=== PATIENT | female | born 1950 | race Caucasian/White ===

== ENCOUNTER 2016-06-26 15:45 | Emergency (ER) | payer BC ==
[~2016-06-26] VITALS: Ht 165.1 cm; Wt 62.7 kg
[2016-06-26 15:55] VITALS: BP 126/74; PULSE 109; RESP 17; TEMP 98.4; O2SAT 95
[2016-06-26] MEDS ORDERED: DIATRIZOATE MEGLUM/DIATRIZOATE SOD 120 ML BTL (for RAD DIAG) PEG ONE (20:00)
[2016-06-26] MEDS ORDERED: LEVO100T5 PO (20:03)
[2016-06-26] MEDS ORDERED: PREV30TA3 PO (20:03)
[2016-06-26] MEDS ORDERED: ONDA1TAB17 PO (20:03)
[2016-06-26] MEDS ORDERED: SUCR1TAB PO (20:03)
[2016-06-26] MEDS ORDERED: POTA-245 PO (20:03)
[2016-06-26] MEDS ORDERED: METF1000 PO (20:03)
[2016-06-26] MEDS ORDERED: SIMV20TA PO (20:03)
[2016-06-26] MEDS ORDERED: NUTR-215 PEG (20:03)
[2016-06-26] MEDS ORDERED: PROC10TA PO (20:03)
[2016-06-26 20:04] VITALS: BP 114/73; PULSE 105; RESP 18; O2SAT 96
--- NOTE | 2016-06-26 20:51 | PD ---
HPI Chief Complaint: Abdominal Pain Time Seen by Provider: 20:52 Travel History International Travel<30 days: No Contact w/Intl Traveler<30days: No Traveled to known affect area: No History of Present Illness HPI 65-year-old female presents to the emergency department for complaint of lower abdominal pain and abdominal distention. Patient has prior history of breast cancer status post lumpectomy and left mastectomy with current history of gastric cancer with metastatic disease to the esophagus spleen and intestine undergoing chemotherapy last chemotherapy 06/07/16 and completing 22 rounds of radiation therapy around the third week of April 2016. Patient underwent PET scan 1 week ago Sunday and was seen by her oncologist in [place] on Sunday and was cleared to come to [place] to visit with family. Patient did comment to her oncologist on Sunday that she was developing some lower abdominal pain which was felt to be related to intestinal gas and possible intestinal spasm patient states since Sunday symptoms have been worsening and she is noted more bloating. Patient spouse are also concerned about PEG tube placement as it seems to have become slightly dislodged and is protruding more than normal by about an inch. According to patient and spouse at bedside patient is tolerating tube feedings well and there has been no difficulty with administering fluids and no difficulty with flushing PEG tube. Patient has continued to have soft stools and flatus. Patient has some minor nausea but has not been taking any medication for nausea and denies any vomiting. Patient denies any fever or chills. Patient's had no chest pain pleuritic pain or shortness of breath. Patient's had no productive cough. Patient denies any lower extremity pain or swelling. Patient's had no dysuria frequency urgency or flank pain but has noted some slight decreased urine output. Patient has been taking oral hydration with bottles of water and receiving water via her PEG tube. Patient is here due to Concern of abdominal distention and lower abdominal pain. Patient has diabetes and reports her blood sugars have been well-controlled. Patient also has history of hypothyroidism and dyslipidemia. No report of CAD but does note that on one of her imaging studies coronary calcifications were noted and did undergo stress testing without being informed of any active cardiac disease. PFSH Past Medical History Narrative Medical Malignant cancer of the stomach breast cancer with lumpectomy and mastectomy chemotherapy radiation therapy dyslipidemia diabetes hypothyroidism GERD peg tube left chest power port prior tobacco use Cancer: Yes (LEFT BREAST, GI TRACT) High Cholesterol: Yes Chemotherapy: Yes (LAST CHEMO 06/07/2016) Diabetes: Yes Patient Takes Glucophage: Yes Diminished Hearing: No Implanted Vascular Access Dvce: Yes (LEFT CHEST POWER PORT) Medical other: Yes (BILATERAL LUMPECTOMY) Thyroid Disease: Yes Tetanus Vaccination: > 5 Years Influenza Vaccination: No ?: Not Past Surgical History Abdominal Surgery: Yes (J-PEG TO LEFT LOWER ABDOMEN) Body Medical Devices: LEFT CHEST INFUSAPORT, LEFT ABDOMEN J-PEG Other Surgery: Yes (LEFT CHEST INFUSAPORT) Social History Alcohol Use: No Tobacco Use: No (QUIT 2006) Substance Use: No Allergies-Medications (Allergen,Severity, Reaction): Coded Allergies: Carboplatin (Verified Allergy, Severe, RASH, 06/26/16) Emend (Verified Allergy, Severe, Anaphylaxis, 06/26/16) Epirubicin (Verified Allergy, Severe, Anaphylaxis, 06/26/16) Reported Meds & Prescriptions Reported Meds & Active Scripts Active Lortab Liq (Hydrocodone-Acetaminophen Liq) 10-300 Mg/15 Ml Elix 7.5-10 Ml PO Q6H PRN Reported Metformin (Metformin HCl) 1,000 Mg Tab 1,000 Mg PO DAILY With a meal Simvastatin 20 Mg Tab 20 Mg PO DAILY Levothyroxine (Levothyroxine Sodium) 100 Mcg Tab 100 Mcg PO DAILY Sucralfate 1 Gm Tab 1 Gm PO QID on empty stomach Glucerna 1.5 Julien (Nutritional Supplements) 1 Liq Liq PEG BID Prochlorperazine Maleate 10 Mg Tab 10 Mg PO Q6H PRN Klor-Con M20 (Potassium Chloride Microencaps) 20 Meq Tab 20 Meq PO DAILY Ondansetron (Ondansetron HCl) 8 Mg Tab 8 Mg PO TID PRN Prevacid Solutab ODT (Lansoprazole) 30 Mg Tab 30 Mg PO DAILY Mix with 4 ml water before giving via tube. Review of Systems Except as stated in HPI: all other systems reviewed are Neg General / Constitutional: No: Fever, Chills HENT: No: Congestion Cardiovascular: No: Chest Pain or Discomfort, Palpitations, Diaphoresis, Syncope, Dyspnea on exertion, Edema Respiratory: No: Cough, Shortness of Breath, Pleuritic Pain Gastrointestinal: Positive: Nausea, Abdominal Pain, Constipation (mild), No: Vomiting, Diarrhea, Loss of Appetite Genitourinary: Positive: Decreased Urinary Output, No: Urgency, Frequency, Dysuria Musculoskeletal: No: Myalgias, Arthralgias, Cramping, Edema, Pain Skin: No Rash Neurologic: No: Weakness Psychiatric: Positive: Anxiety Endocrine: No: Heat Intolerance Hematologic/Lymphatic: No: Easy Bruising Physical Exam Narrative GENERAL: Well-developed well-nourished female in no acute distress no respiratory distress SKIN: Warm and dry. HEAD: Normocephalic. EYES: No scleral icterus. No injection or drainage. NECK: Supple, trachea midline. No JVD or lymphadenopathy. CARDIOVASCULAR: Regular rate and rhythm without murmurs, gallops, or rubs. RESPIRATORY: Breath sounds equal bilaterally. No accessory muscle use. GASTROINTESTINAL: Abdomen soft, non-tender, nondistended. Peg tube. MUSCULOSKELETAL: No cyanosis, or edema. BACK: Nontender without obvious deformity. No CVA tenderness. Data Data Last Documented VS Vital Signs Date Time Temp Pulse Resp B/P Pulse Ox O2 Delivery O2 Flow Rate FiO2 06/27/16 00:43 98.2 97 18 118/65 97 Room Air Orders Complete Blood Count With Diff (06/26/16 20:52) Comprehensive Metabolic Panel (06/26/16 20:52) Lipase (06/26/16 20:52) Prothrombin Time / Inr (Pt) (06/26/16 20:52) Act Partial Throm Time (Ptt) (06/26/16 20:52) Urinalysis - C+S If Indicated (06/26/16 20:52) Abdomen, Flat & Upright (06/26/16 ) Iv Access Insert/Monitor (06/26/16 20:52) Ecg Monitoring (06/26/16 20:52) Oximetry (06/26/16 20:52) Sodium Chloride 0.9% Flush (Ns Flush) (06/26/16 21:00) Sodium Chlorid 0.9% 500 Ml Inj (Ns 500 M (06/26/16 21:00) Diatrizoate Liq ( Gastroview Liq) (06/26/16 20:00) Ct Abd/Pel W Iv Contrast(Rout) (06/26/16 ) Sodium Chlorid 0.9% 500 Ml Inj (Ns 500 M (06/26/16 23:30) Iohexol 350 Inj (Omnipaque 350 Inj) (06/26/16 23:50) Labs Laboratory Tests Test 06/26/16 06/26/16 21:25 22:18 White Blood Count 6.1 TH/MM3 Red Blood Count 3.61 MIL/MM3 Hemoglobin 11.6 GM/DL Hematocrit 34.1 % Mean Corpuscular Volume 94.5 FL Mean Corpuscular Hemoglobin 32.1 PG Mean Corpuscular Hemoglobin 34.0 % Concent Red Cell Distribution Width 19.8 % Platelet Count 321 TH/MM3 Mean Platelet Volume 6.7 FL Neutrophils (%) (Auto) 75.7 % Lymphocytes (%) (Auto) 6.1 % Monocytes (%) (Auto) 16.0 % Eosinophils (%) (Auto) 1.8 % Basophils (%) (Auto) 0.4 % Neutrophils # (Auto) 4.6 TH/MM3 Lymphocytes # (Auto) 0.4 TH/MM3 Monocytes # (Auto) 1.0 TH/MM3 Eosinophils # (Auto) 0.1 TH/MM3 Basophils # (Auto) 0.0 TH/MM3 CBC Comment DIFF FINAL Differential Comment Prothrombin Time 11.3 SEC Prothromb Time International 1.0 RATIO Ratio Activated Partial 24.5 SEC Thromboplast Time Sodium Level 137 MEQ/L Potassium Level 4.1 MEQ/L Chloride Level 100 MEQ/L Carbon Dioxide Level 28.7 MEQ/L Anion Gap 8 MEQ/L Blood Urea Nitrogen 13 MG/DL Creatinine 0.52 MG/DL Estimat Glomerular Filtration 119 ML/MIN Rate Random Glucose 125 MG/DL Calcium Level 8.8 MG/DL Total Bilirubin 0.5 MG/DL Aspartate Amino Transf 19 U/L (AST/SGOT) Alanine Aminotransferase 22 U/L (ALT/SGPT) Alkaline Phosphatase 101 U/L Total Protein 7.1 GM/DL Albumin 3.1 GM/DL Lipase 62 U/L Urine Color LUIS E Urine Turbidity CLEAR Urine pH 6.0 Urine Specific [place] 1.025 Urine Protein TRACE mg/dL Urine Glucose (UA) NEG mg/dL Urine Ketones NEG mg/dL Urine Occult Blood NEG Urine Nitrite NEG Urine Bilirubin NEG Urine Leukocyte Esterase TRACE Urine RBC 0-3 /hpf Urine WBC 3-5 /hpf Urine Squamous Epithelial 0-5 /hpf Cells Urine Bacteria NONE /hpf Microscopic Urinalysis Comment CULT NOT INDICATED MDM Medical Decision Making Medical Screen Exam Complete: Yes Emergency Medical Condition: Yes Medical Record Reviewed: Yes Interpretation(s) CBC & BMP Diagram 06/26/16 21:25 Vital Signs Date Time Temp Pulse Resp B/P Pulse Ox O2 Delivery O2 Flow Rate FiO2 06/26/16 21:30 105 16 115/71 94 Room Air 06/26/16 21:25 94 Room Air 06/26/16 20:04 105 18 114/73 96 Room Air 06/26/16 15:55 98.4 109 17 126/74 95 Differential Diagnosis Abdominal pain, ascites, gastroenteritis, bowel obstruction, jejunostomy tube dislodgment, UTI, sepsis Narrative Course IV access obtained specimens collected and sent for resulting imaging studies 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 500 cc @10 PM patient resting comfortably with family at bedside awaiting lab results; aware that abdominal flat and upright with Gastrografin shows evidence of J- tube in good position without leakage Diagnosis Primary Impression: Ascites Qualified Code: R18.0 - Malignant ascites Additional Impressions: Jejunostomy tube present Metastasis from gastric cancer Referrals: Oncologist call for appointment Patient Instructions: General Instructions Additional Instructions: Increase fluid hydration Add MiraLAX to regimen to prevent constipation Take pain medication as prescribed as needed Monitor temperature for fever take acetaminophen/Tylenol as needed for fever 100.4F or greater Return to the emergency department for any concerns pain fever or change in condition Follow-up with your oncologist call office in a.m. to schedule follow-up appointment HOLD METFORMIN for greater than 48 hours from 06/27/16 1:30 AM and have creatinine rechecked at 48 hours OFF of metformin Med/Other Pt SpecificInfo: Prescription(s) given Scripts Hydrocodone-Acetaminophen Liq (Lortab Liq)10-300 Mg/15 Ml Elix7.5-10 Ml PO Q6H PRN (PAIN) #120 ML Ref 0 Prov:Tierra Chamberlain MD 06/27/16 Disposition: 01 DISCHARGE HOME Condition: Stable Tierra Cahmberlain MD Jun 26, 2016 20:51
[2016-06-26] MEDS ORDERED: SODIUM CHLORID 0.9% 500 ML INJ 500 ML IV ONE ×2 (21:00→23:30)
[2016-06-26] MEDS ORDERED: SODIUM CHLORIDE 0.9% FLUSH 5 ML FLUSH IVF PRN (21:00)
[2016-06-26 21:25] VITALS: O2SAT 94
--- NOTE | 2016-06-26 21:27 | RADHPO ---
EXAM DATE/TIME: 06/26/2016 21:09 [facility] COMPARISON: No previous studies available for comparison. INDICATIONS : Stomach pain for 4 days, peg tube to be injected with gastrograffin per doctor. MEDICAL HISTORY : Carcinoma, gastric. SURGICAL HISTORY : Lymphectomy; PEG tube ENCOUNTER: Initial ACUITY: 4 - 6 days PAIN SCORE: 6/10 LOCATION: Bilateral upper quadrant FINDINGS: Supine and upright views of the abdomen were performed. Gas is noted in the stomach and right-sided c olon. There are several multiple air-fluid levels on the erect film. No air fluid levels are seen. N o abnormal masses, calcifications, or organomegaly is seen. The visualized lower lungs are clear. N o evidence of free intraperitoneal gas. The osseous structures are unremarkable. There is a small am ount of Gastrografin present in the proximal small bowel. A jejunostomy tube is present with no evide nce of leakage. CONCLUSION: 1. Jejunostomy tube in place with no evidence of leakage. Nonspecific bowel gas pattern. Jak Arellano MD on June 26, 2016 at 21:24 Board Certified Radiologist. This report was verified electronically.
[2016-06-26 21:30] VITALS: BP 115/71; PULSE 105; RESP 16; O2SAT 94
[2016-06-26 21:33] LABS: AUTOMATED NEUTROPHIL # 4.6 TH/MM3 (1.8-7.7); BASOPHIL % 0.4 % (0.0-2.0); EOSINOPHIL # 0.1 TH/MM3 (0-0.4); EOSINOPHIL % 1.8 % (0.0-4.0); HEMATOCRIT 34.1 % (35.0-46.0); LYMPH % 6.1 % (9.0-44.0); LYMPHOCYTE # 0.4 TH/MM3 (1.0-4.8); MEAN CELL VOLUME 94.5 FL (80.0-100.0); MEAN CORPUSCULAR HEMOGLOBIN 32.1 PG (27.0-34.0); NEUT % 75.7 % (16.0-70.0); PLATELET COUNT 321 TH/MM3 (150-450); RED BLOOD COUNT 3.61 MIL/MM3 (4.00-5.30); RED CELL DISTRIBUTION WIDTH 19.8 % (11.6-17.2); WHITE BLOOD COUNT 6.1 TH/MM3 (4.0-11.0)
[2016-06-26 21:36] LABS: HEMO FLAGS DIFF FINAL
[2016-06-26 21:40] LABS: CHLORIDE 100 MEQ/L (98-107); POTASSIUM 4.1 MEQ/L (3.5-5.1); SODIUM (NA) 137 MEQ/L (136-145)
[2016-06-26 21:44] LABS: BICARBONATE 28.7 MEQ/L (21.0-32.0)
[2016-06-26 21:45] LABS: ANION GAP 8 MEQ/L (5-15); BLOOD UREA NITROGEN 13 MG/DL (7-18)
[2016-06-26 21:47] LABS: ALT (GPT) 22 U/L (10-53); APTT (PATIENT) 24.5 SEC (24.3-30.1); AST (GOT) 19 U/L (15-37); PROTHROMBIN TIME - PATIENT 11.3 SEC (9.8-11.6)
[2016-06-26 21:48] LABS: GLOMERULAR FILTRATION RATE 119 ML/MIN (>89)
[2016-06-26 21:49] LABS: TOTAL BILIRUBIN ADULT 0.5 MG/DL (0.2-1.0)
[2016-06-26 21:50] LABS: ALKALINE PHOSPHATASE 101 U/L (45-117)
[2016-06-26 22:29] LABS: BLOOD, URINE NEG (NEG); GLUCOSE,URINE NEG (NEG); KETONE, URINE NEG (NEG); NITRITE,URINE NEG (NEG)
[2016-06-26 22:36] LABS: URINE COLOR AMBER (YELLW/STRAW)
[2016-06-26 22:37] LABS: COMMENT (UR) CULT NOT INDICATED; CULTURE IF INDICATED CULT NOT INDICATED; RBC, URINE 0-3 /hpf (0-3); SQUAMOUS EPITHELIAL CELL URINE 0-5 /hpf (0-5)
[2016-06-26] MEDS ORDERED: IOHEXOL 350 MG/ML 10 ML VIAL (for RAD DIAG) IV ONE (23:50)
[2016-06-27 00:43] VITALS: BP 118/65; PULSE 97; RESP 18; TEMP 98.2; O2SAT 97
--- NOTE | 2016-06-27 01:03 | RADHPO ---
EXAM DATE/TIME: 06/26/2016 23:45 [facility] COMPARISON: No previous studies available for comparison. INDICATIONS : Bilateral abdominal pain and distention. IV CONTRAST: 100 cc Omnipaque 350 (iohexol) IV ORAL CONTRAST: No oral contrast ingested. RADIATION DOSE: 11.02 CTDIvol (mGy) MEDICAL HISTORY : Diabetes mellitus type 2. Carcinoma, breast. Carcinoma, gastric. SURGICAL HISTORY : Mastectomy, left. JPEG ENCOUNTER: Initial ACUITY: 4 - 6 days PAIN SCALE: 4/10 LOCATION: Bilateral lower quadrant TECHNIQUE: Volumetric scanning of the abdomen and pelvis was performed. Using automated exposure control and ad justment of the mA and/or kV according to patient size, radiation dose was kept as low as reasonably achievable to obtain optimal diagnostic quality images. FINDINGS: LOWER LUNGS: Mild atelectasis at the left lung base. LIVER: Calcified 6 mm gallstone in the dependent portion of the gallbladder. No gallbladder wall thickening. Liver is homogeneous and within normal limits. SPLEEN: Calcified granulomas in the spleen. PANCREAS: Within normal limits. KIDNEYS: Normal in size and shape. There is no mass, stone or hydronephrosis. ADRENAL GLANDS: Within normal limits. VASCULAR: Diffuse aortoiliac calcification. Aortic diameter are within normal limits. BOWEL/MESENTERY: There is focal small bowel wall thickening over a 4 cm segment of the ileum in the right lower quadra nt. This is nonspecific. Moderate diffuse ascites. Thick stranding and mild nodularity of the mesente ry anteriorly in the mid abdomen, right upper quadrant, and right lower quadrant. Tubular thin-walled loculated fluid just lateral to the proximal ascending colon measuring 8 cm x3 cm in diameter. Mild thickening and nodularity of the peritoneum posteriorly in the pelvis. No evidence of bowel dilatatio n. No free air. Appendix not identified. Percutaneous feeding tube is identified in the left upper qu adrant with tip in the proximal jejunum. ABDOMINAL WALL: Within normal limits. RETROPERITONEUM: There is no lymphadenopathy. BLADDER: No wall thickening or mass. REPRODUCTIVE: Within normal limits. INGUINAL: There is no lymphadenopathy or hernia. MUSCULOSKELETAL: Within normal limits for patient age. CONCLUSION: 1. Moderate ascites with thick stranding and mild nodularity suspicious for peritoneal metastatic dis ease. Tubular loculated area of fluid in the right upper quadrant adjacent to the proximal ascending colon. 2. Short segment wall thickening right lower quadrant small bowel, nonspecific. May represent focal e nteritis. 3. Cholelithiasis. Samy Khan MD on June 27, 2016 at 0:43 Board Certified Radiologist. This report was verified electronically.
[2016-06-27] MEDS ORDERED: HYDR1ELX PO (01:14)
== END 2016-06-27 01:55 | disposition home or self-care (01) ==
LOC: PHED 15:45 → PHEFT 06-27 01:55
DX: R18.8 Other ascites (principal); K80.20 Calculus of gallbladder without cholecystitis without obstruction; E78.00 Pure hypercholesterolemia, unspecified; E11.9 Type 2 diabetes mellitus without complications; Z93.4 Other artificial openings of gastrointestinal tract status
CPT/HCPCS: 74020; 74177; 80053; 81001; 83690; 85025; 85610; 85730; 96360; 99284; J7040; Q9963; Q9967

== ENCOUNTER 2016-06-29 08:16 | Emergency (ER) | payer BC ==
[~2016-06-29] VITALS: Ht 165.1 cm; Wt 65.7 kg
[~2016-06-29 08:16] MED LIST: HYDR1ELX PO; LEVO100T5 PO; METF1000 PO; NUTR-215 PEG; ONDA1TAB17 PO; POTA-245 PO; PREV30TA3 PO; PROC10TA PO; SIMV20TA PO; SUCR1TAB PO
[2016-06-29 08:19] VITALS: BP 129/81; PULSE 108; RESP 16; TEMP 98.6; O2SAT 95
--- NOTE | 2016-06-29 08:32 | PD ---
HPI Chief Complaint: Medical Clearance Time Seen by Provider: 08:21 Travel History International Travel<30 days: No Contact w/Intl Traveler<30days: No Traveled to known affect area: No History of Present Illness HPI This is a 65-year-old female with history of metastatic gastric cancer who is here visiting [place] on vacation who presents to the emergency department requesting repeat blood work. 2 days ago she was seen in the emergency department for concern that her PEG tube was leaking in her abdomen. She was having increasing abdominal distention and discomfort and wasn't having bowel movements. She's not had any nausea or vomiting. She had a CT scan at that time with IV contrast and was told to return to the emergency department in 48 hours for repeat creatinine in order for her to restart her metformin. The patient does report continued abdominal distention and mild discomfort. She still not had a bowel movement. She's been taking MiraLAX. She denies any severe pain. PFSH Past Medical History Cancer: Yes (LEFT BREAST, GI TRACT) High Cholesterol: Yes Chemotherapy: Yes (06/07/16 - stomach ca) Diabetes: Yes (type 2 ) Diminished Hearing: No Implanted Vascular Access Dvce: Yes (LEFT CHEST POWER PORT) Thyroid Disease: Yes ?: Not Past Surgical History Abdominal Surgery: Yes (J-PEG TO LEFT LOWER ABDOMEN) Body Medical Devices: LEFT CHEST INFUSAPORT, LEFT ABDOMEN J-PEG Other Surgery: Yes (LEFT CHEST INFUSAPORT) Social History Alcohol Use: No Tobacco Use: No (QUIT 2006) Substance Use: No Allergies-Medications (Allergen,Severity, Reaction): Coded Allergies: Carboplatin (Verified Allergy, Severe, RASH, 06/29/16) Emend (Verified Allergy, Severe, Anaphylaxis, 06/29/16) Epirubicin (Verified Allergy, Severe, Anaphylaxis, 06/29/16) Reported Meds & Prescriptions Reported Meds & Active Scripts Active Lortab Liq (Hydrocodone-Acetaminophen Liq) 10-300 Mg/15 Ml Elix 7.5-10 Ml PO Q6H PRN Reported Metformin (Metformin HCl) 1,000 Mg Tab 1,000 Mg PO DAILY With a meal Simvastatin 20 Mg Tab 20 Mg PO DAILY Levothyroxine (Levothyroxine Sodium) 100 Mcg Tab 100 Mcg PO DAILY Sucralfate 1 Gm Tab 1 Gm PO QID on empty stomach Glucerna 1.5 Julien (Nutritional Supplements) 1 Liq Liq PEG BID Prochlorperazine Maleate 10 Mg Tab 10 Mg PO Q6H PRN Klor-Con M20 (Potassium Chloride Microencaps) 20 Meq Tab 20 Meq PO DAILY Ondansetron (Ondansetron HCl) 8 Mg Tab 8 Mg PO TID PRN Prevacid Solutab ODT (Lansoprazole) 30 Mg Tab 30 Mg PO DAILY Mix with 4 ml water before giving via tube. Review of Systems Except as stated in HPI: all other systems reviewed are Neg Physical Exam Narrative GENERAL:Well appearing, no acute distress SKIN: Warm and dry. HEAD: Atraumatic. Normocephalic. EYES: Pupils equal and round. No injection or drainage. ENT: Moist mucous membranes NECK: Trachea midline. CARDIOVASCULAR: Regular rate and rhythm. No murmur appreciated. RESPIRATORY: Clear to auscultation. Breath sounds equal bilaterally. GASTROINTESTINAL: Bowel sounds present in all 4 quadrants. Abdomen soft, tender to palpation in the left upper quadrant with no rebound or guarding. Left upper quadrant surgical scar well-healed. PEG tube in place with no surrounding erythema or fluctuance. MUSCULOSKELETAL: No obvious deformities. NEUROLOGICAL: Awake and alert. No obvious cranial nerve deficits. Moving all extremities. PSYCHIATRIC: Appropriate mood and affect; insight and judgment normal. Data Data Last Documented VS Vital Signs Date Time Temp Pulse Resp B/P Pulse Ox O2 Delivery O2 Flow Rate FiO2 06/29/16 08:19 98.6 108 16 129/81 95 Orders Basic Metabolic Panel (Bmp) (06/29/16 08:30) Labs Laboratory Tests Test 06/29/16 08:40 Sodium Level 137 MEQ/L Potassium Level 4.1 MEQ/L Chloride Level 98 MEQ/L Carbon Dioxide Level 30.5 MEQ/L Anion Gap 9 MEQ/L Blood Urea Nitrogen 20 MG/DL Creatinine 0.45 MG/DL Estimat Glomerular Filtration 141 ML/MIN Rate Random Glucose 172 MG/DL Calcium Level 8.3 MG/DL [facility] Medical Decision Making Medical Screen Exam Complete: Yes Emergency Medical Condition: Yes Differential Diagnosis Renal failure Narrative Course This is a 65-year-old female who presents to the emergency department having had a CT with IV contrast 2 days ago, coming to check her creatinine to restart her metformin. Creatinine is normal here in the emergency department. Patient was advised she can restart her metformin. She is otherwise well-appearing and can be discharged home to follow-up with her oncologist Diagnosis Primary Impression: Constipation Qualified Code: K59.01 - Slow transit constipation Patient Instructions: General Instructions Additional Instructions: If you develop severe or worsening abdominal pain, fever>100.4, persistent vomiting or inability to eat or drink return to the emergency department immediately. Follow up with your primary care physician in 1-2 days for a check-up. Med/Other Pt SpecificInfo: Existing Med Changed (restart metformin) Disposition: DISCHARGE HOME Condition: Stable Mary Santos MD Jun 29, 2016 08:32
[2016-06-29 08:56] LABS: POTASSIUM 4.1 MEQ/L (3.5-5.1)
[2016-06-29 08:59] LABS: BICARBONATE 30.5 MEQ/L (21.0-32.0)
== END 2016-06-29 09:21 | disposition home or self-care (01) ==
LOC: PHED 08:16
DX: K59.00 Constipation, unspecified (principal); E78.00 Pure hypercholesterolemia, unspecified
CPT/HCPCS: 80048; 99283

== ENCOUNTER 2016-06-30 12:45 | Emergency (ER) | payer BC ==
[~2016-06-30] VITALS: Ht 165.1 cm; Wt 60.0 kg
[2016-06-30 12:47] VITALS: BP 131/72; PULSE 110; RESP 20; TEMP 98; O2SAT 95
[2016-06-30 12:54] VITALS: BP 127/77; PULSE 110; RESP 18; O2SAT 99
--- NOTE | 2016-06-30 12:59 | PD ---
HPI Chief Complaint: Abdominal Pain Time Seen by Provider: 12:58 Travel History International Travel<30 days: No Contact w/Intl Traveler<30days: No Traveled to known affect area: No History of Present Illness HPI 65-year-old female presents the emergency department with history of type 2 diabetes, breast cancer, and gastric carcinoma. Patient comes in as a visitor from [facility] since last Sunday. She is currently undergoing treatment for gastric cancer with her last dose of chemotherapy on June 07. Patient is here visiting from [facility], and is planning to fly home in 3 days. Patient was recently seen at [facility], diagnosed with constipation, and was told to use GoLYTELY in her J-tube. Patient is currently taking feedings with a J-tube as she is unable to eat by mouth. Patient has CT at that time showing moderate ascites in the abdomen. Patient states now she is feeling more distended and having more discomfort in the abdominal wall due to the swelling in her belly. She states her bowel movements have actually improved with the GoLYTELY. Patient denies fever, chills, or urinary symptoms at this time. Patient is not needed paracentesis before. He ascites in her abdomen is new according to the patient. The patient is mainly here due to her discomfort and questions whether there is something to do for it. Patient is allergic to carboplatin, Emend, and Epirubicin. PFSH Past Medical History Cancer: Yes (LEFT BREAST, GI TRACT) High Cholesterol: Yes Chemotherapy: Yes (06/07/16 - stomach ca) Diabetes: Yes (type 2 ) Diminished Hearing: No Implanted Vascular Access Dvce: Yes (LEFT CHEST POWER PORT) Immunizations Current: Yes Thyroid Disease: Yes ?: Not : 6 Para: 4 : 2 Past Surgical History Abdominal Surgery: Yes (J-PEG TO LEFT LOWER ABDOMEN, lymph node removal ) Body Medical Devices: LEFT CHEST INFUSAPORT, LEFT ABDOMEN J-PEG Oral Surgery: Yes (esophageal stent placement and removal.) Other Surgery: Yes ( bilateral lumpectomy, infusaport left chest-powerport) Social History Alcohol Use: No Tobacco Use: No (QUIT 2006) Substance Use: No Allergies-Medications (Allergen,Severity, Reaction): Coded Allergies: Carboplatin (Verified Allergy, Severe, RASH, 06/29/16) Emend (Verified Allergy, Severe, Anaphylaxis, 06/29/16) Epirubicin (Verified Allergy, Severe, Anaphylaxis, 06/29/16) Reported Meds & Prescriptions Reported Meds & Active Scripts Active Lortab Liq (Hydrocodone-Acetaminophen Liq) 10-300 Mg/15 Ml Elix 7.5-10 Ml PO Q6H PRN Reported Metformin (Metformin HCl) 1,000 Mg Tab 1,000 Mg PO DAILY With a meal Simvastatin 20 Mg Tab 20 Mg PO DAILY Levothyroxine (Levothyroxine Sodium) 100 Mcg Tab 100 Mcg PO DAILY Sucralfate 1 Gm Tab 1 Gm PO QID on empty stomach Glucerna 1.5 Julien (Nutritional Supplements) 1 Liq Liq PEG BID Prochlorperazine Maleate 10 Mg Tab 10 Mg PO Q6H PRN Klor-Con M20 (Potassium Chloride Microencaps) 20 Meq Tab 20 Meq PO DAILY Ondansetron (Ondansetron HCl) 8 Mg Tab 8 Mg PO TID PRN Review of Systems Except as stated in HPI: all other systems reviewed are Neg General / Constitutional: No: Fever Eyes: No: Visual changes HENT: No: Headaches Cardiovascular: No: Chest Pain or Discomfort Respiratory: No: Shortness of Breath Gastrointestinal: Positive: Abdominal Pain (see history present illness.), No : Nausea, Vomiting, Diarrhea, Constipation Genitourinary: No: Dysuria Musculoskeletal: No: Pain Skin: No Rash Neurologic: No: Weakness Psychiatric: No: Depression Endocrine: No: Polydipsia Hematologic/Lymphatic: No: Easy Bruising Physical Exam Narrative GENERAL: Patient appears mildly anxious but no acute distress. SKIN: Warm and dry. Normal color. Normal turgor. HEAD: Atraumatic. Normocephalic. EYES: Pupils equal and round. No scleral icterus. No injection or drainage. ENT: No nasal bleeding or discharge. Mucous membranes pink and moist. Pharynx is clear. NECK: Trachea midline. No JVD. CARDIOVASCULAR: Regular rate and rhythm. RESPIRATORY: No accessory muscle use. Clear to auscultation. Breath sounds equal bilaterally. GASTROINTESTINAL: Abdomen soft, diffusely mildly tender, patient has moderate distention. Hepatic and splenic margins not palpable. MUSCULOSKELETAL: Extremities without clubbing, cyanosis, or edema. No obvious deformities. NEUROLOGICAL: Awake and alert. No obvious cranial nerve deficits. Motor grossly within normal limits. Five out of 5 muscle strength in the arms and legs. Normal speech. PSYCHIATRIC: Appropriate mood and affect; insight and judgment normal. Data Data Last Documented VS Vital Signs Date Time Temp Pulse Resp B/P Pulse Ox O2 Delivery O2 Flow Rate FiO2 06/30/16 13:17 97 Nasal Cannula 2 06/30/16 13:12 18 06/30/16 12:54 110 127/77 06/30/16 12:47 98.0 Orders Complete Blood Count With Diff (06/30/16 13:13) Comprehensive Metabolic Panel (06/30/16 13:13) Lipase (06/30/16 13:13) Prothrombin Time / Inr (Pt) (06/30/16 13:13) Act Partial Throm Time (Ptt) (06/30/16 13:13) Urinalysis - C+S If Indicated (06/30/16 13:13) Iv Access Insert/Monitor (06/30/16 13:13) Ecg Monitoring (06/30/16 13:13) Oximetry (06/30/16 13:13) Sodium Chloride 0.9% Flush (Ns Flush) (06/30/16 13:15) Labs Laboratory Tests Test 06/30/16 06/30/16 13:16 13:18 Urine Color YELLOW Urine Turbidity CLEAR Urine pH 6.5 Urine Specific [employer] 1.027 Urine Protein TRACE mg/dL Urine Glucose (UA) NEG mg/dL Urine Ketones NEG mg/dL Urine Occult Blood NEG Urine Nitrite NEG Urine Bilirubin NEG Urine Urobilinogen 2.0 MG/DL Urine Leukocyte Esterase NEG Urine RBC LESS THAN 1 /hpf Urine WBC 1 /hpf Urine Squamous Epithelial 1 /hpf Cells Urine Mucus FEW /lpf Microscopic Urinalysis Comment CULT NOT INDICATED White Blood Count 11.4 TH/MM3 Red Blood Count 3.48 MIL/MM3 Hemoglobin 11.3 GM/DL Hematocrit 32.8 % Mean Corpuscular Volume 94.3 FL Mean Corpuscular Hemoglobin 32.4 PG Mean Corpuscular Hemoglobin 34.4 % Concent Red Cell Distribution Width 19.1 % Platelet Count 324 TH/MM3 Mean Platelet Volume 7.8 FL Neutrophils (%) (Auto) 84.2 % Lymphocytes (%) (Auto) 4.0 % Monocytes (%) (Auto) 10.9 % Eosinophils (%) (Auto) 0.5 % Basophils (%) (Auto) 0.4 % Neutrophils # (Auto) 9.6 TH/MM3 Lymphocytes # (Auto) 0.5 TH/MM3 Monocytes # (Auto) 1.2 TH/MM3 Eosinophils # (Auto) 0.1 TH/MM3 Basophils # (Auto) 0.0 TH/MM3 CBC Comment DIFF FINAL Differential Comment Prothrombin Time 10.7 SEC Prothromb Time International 1.0 RATIO Ratio Activated Partial 25.4 SEC Thromboplast Time Sodium Level 134 MEQ/L Potassium Level 4.2 MEQ/L Chloride Level 97 MEQ/L Carbon Dioxide Level 29.2 MEQ/L Anion Gap 8 MEQ/L Blood Urea Nitrogen 19 MG/DL Creatinine 0.47 MG/DL Estimat Glomerular Filtration 134 ML/MIN Rate Random Glucose 157 MG/DL Calcium Level 8.5 MG/DL Total Bilirubin 0.5 MG/DL Aspartate Amino Transf 22 U/L (AST/SGOT) Alanine Aminotransferase 24 U/L (ALT/SGPT) Alkaline Phosphatase 100 U/L Total Protein 6.8 GM/DL Albumin 2.7 GM/DL Lipase 52 U/L MDM Medical Decision Making Medical Screen Exam Complete: Yes Emergency Medical Condition: Yes Differential Diagnosis History of gastric cancer. Metastatic disease. Ascites. Narrative Course Patient is medically stable at time of exam. Patient is discussed with Dr. Wiley who recommends checking the patient's labs to make sure they are stable, and then refer the patient to outpatient interventional radiology for paracentesis. Labs are normal, and reviewed with Dr. Wiley. Patient is to go to interventional radiology for paracentesis. Patient can return to [place] on Sunday and follow-up with her oncologist as scheduled. Patient can return the emergency Department with worsening symptoms if necessary between now and then. Diagnosis Primary Impression: Ascites Qualified Code: R18.0 - Malignant ascites Patient Instructions: General Instructions Additional Instructions: Labs are normal, and reviewed with Dr. Wiley. Patient is to go to interventional radiology for paracentesis. Patient can return to [place] on Sunday and follow-up with her oncologist as scheduled. Patient can return Med/Other Pt SpecificInfo: No Change to Meds Condition: Stable Ismael Harrington Jun 30, 2016 12:59
[2016-06-30] MEDS ORDERED: SODIUM CHLORIDE 0.9% FLUSH 5 ML FLUSH IVF PRN (13:15)
[2016-06-30 13:17] VITALS: O2SAT 97
[2016-06-30 13:36] LABS: AUTOMATED NEUTROPHIL # 9.6 TH/MM3 (1.8-7.7); BASOPHIL % 0.4 % (0.0-2.0); EOSINOPHIL # 0.1 TH/MM3 (0-0.4); EOSINOPHIL % 0.5 % (0.0-4.0); HEMATOCRIT 32.8 % (35.0-46.0); HEMO FLAGS DIFF FINAL; LYMPHOCYTE # 0.5 TH/MM3 (1.0-4.8); MEAN CELL VOLUME 94.3 FL (80.0-100.0); MEAN CORPUSCULAR HEMOGLOBIN 32.4 PG (27.0-34.0); MEAN CORPUSCULAR HGB CONC 34.4 % (32.0-36.0); MONO % 10.9 % (0.0-8.0); NEUT % 84.2 % (16.0-70.0); PLATELET COUNT 324 TH/MM3 (150-450); RED BLOOD COUNT 3.48 MIL/MM3 (4.00-5.30); RED CELL DISTRIBUTION WIDTH 19.1 % (11.6-17.2); WHITE BLOOD COUNT 11.4 TH/MM3 (4.0-11.0)
[2016-06-30 13:47] LABS: APTT (PATIENT) 25.4 SEC (24.3-30.1); PROTHROMBIN TIME - PATIENT 10.7 SEC (9.8-11.6)
[2016-06-30 13:51] LABS: BLOOD, URINE NEG (NEG); COMMENT (UR) CULT NOT INDICATED; CULTURE IF INDICATED CULT NOT INDICATED; GLUCOSE,URINE NEG (NEG); KETONE, URINE NEG (NEG); MUCUS URINE FEW /lpf (OCC); NITRITE,URINE NEG (NEG); PH, URINE 6.5 (5.0-8.5); SQUAMOUS EPITHELIAL CELL URINE 1 /hpf (0-5); URINE COLOR YELLOW (YELLW/STRAW)
[2016-06-30 13:54] LABS: ALT (GPT) 24 U/L (10-53); AST (GOT) 22 U/L (15-37); BLOOD UREA NITROGEN 19 MG/DL (7-18); GLOMERULAR FILTRATION RATE 134 ML/MIN (>89); SODIUM (NA) 134 MEQ/L (136-145)
[2016-06-30 13:55] LABS: ANION GAP 8 MEQ/L (5-15); BICARBONATE 29.2 MEQ/L (21.0-32.0); CHLORIDE 97 MEQ/L (98-107); POTASSIUM 4.2 MEQ/L (3.5-5.1)
[2016-06-30 13:57] LABS: ALKALINE PHOSPHATASE 100 U/L (45-117); TOTAL BILIRUBIN ADULT 0.5 MG/DL (0.2-1.0)
--- NOTE | 2016-06-30 14:15 | PD ---
Data Data Last Documented VS Vital Signs Date Time Temp Pulse Resp B/P Pulse Ox O2 Delivery O2 Flow Rate FiO2 06/30/16 13:17 97 Nasal Cannula 2 06/30/16 13:12 18 06/30/16 12:54 110 127/77 06/30/16 12:47 98.0 Orders Complete Blood Count With Diff (06/30/16 13:13) Comprehensive Metabolic Panel (06/30/16 13:13) Lipase (06/30/16 13:13) Prothrombin Time / Inr (Pt) (06/30/16 13:13) Act Partial Throm Time (Ptt) (06/30/16 13:13) Urinalysis - C+S If Indicated (06/30/16 13:13) Iv Access Insert/Monitor (06/30/16 13:13) Ecg Monitoring (06/30/16 13:13) Oximetry (06/30/16 13:13) Sodium Chloride 0.9% Flush (Ns Flush) (06/30/16 13:15) Labs Laboratory Tests Test 06/30/16 06/30/16 13:16 13:18 Urine Color YELLOW Urine Turbidity CLEAR Urine pH 6.5 Urine Specific [place] 1.027 Urine Protein TRACE mg/dL Urine Glucose (UA) NEG mg/dL Urine Ketones NEG mg/dL Urine Occult Blood NEG Urine Nitrite NEG Urine Bilirubin NEG Urine Urobilinogen 2.0 MG/DL Urine Leukocyte Esterase NEG Urine RBC LESS THAN 1 /hpf Urine WBC 1 /hpf Urine Squamous Epithelial 1 /hpf Cells Urine Mucus FEW /lpf Microscopic Urinalysis Comment CULT NOT INDICATED White Blood Count 11.4 TH/MM3 Red Blood Count 3.48 MIL/MM3 Hemoglobin 11.3 GM/DL Hematocrit 32.8 % Mean Corpuscular Volume 94.3 FL Mean Corpuscular Hemoglobin 32.4 PG Mean Corpuscular Hemoglobin 34.4 % Concent Red Cell Distribution Width 19.1 % Platelet Count 324 TH/MM3 Mean Platelet Volume 7.8 FL Neutrophils (%) (Auto) 84.2 % Lymphocytes (%) (Auto) 4.0 % Monocytes (%) (Auto) 10.9 % Eosinophils (%) (Auto) 0.5 % Basophils (%) (Auto) 0.4 % Neutrophils # (Auto) 9.6 TH/MM3 Lymphocytes # (Auto) 0.5 TH/MM3 Monocytes # (Auto) 1.2 TH/MM3 Eosinophils # (Auto) 0.1 TH/MM3 Basophils # (Auto) 0.0 TH/MM3 CBC Comment DIFF FINAL Differential Comment Prothrombin Time 10.7 SEC Prothromb Time International 1.0 RATIO Ratio Activated Partial 25.4 SEC Thromboplast Time Sodium Level 134 MEQ/L Potassium Level 4.2 MEQ/L Chloride Level 97 MEQ/L Carbon Dioxide Level 29.2 MEQ/L Anion Gap 8 MEQ/L Blood Urea Nitrogen 19 MG/DL Creatinine 0.47 MG/DL Estimat Glomerular Filtration 134 ML/MIN Rate Random Glucose 157 MG/DL Calcium Level 8.5 MG/DL Total Bilirubin 0.5 MG/DL Aspartate Amino Transf 22 U/L (AST/SGOT) Alanine Aminotransferase 24 U/L (ALT/SGPT) Alkaline Phosphatase 100 U/L Total Protein 6.8 GM/DL Albumin 2.7 GM/DL Lipase 52 U/L MDM Supervised Visit with JOELLE: Yes Narrative Course I, Dr. Winters, have reviewed the advance practice practioner's documentation and am in agreement, met with the patient face to face, made the diagnosis, and the medical decision making was done by me. *My assessment and Findings: 65-year-old female with diabetes, gastric/breast cancer here with increasing abdominal distention, slight amount discomfort. Has known ascites and has had increasing pain. Abdominal examination is benign with positive fluid wave but no signs of peritonitis. My suspicion is that she has symptomatic ascites but no evidence of SBP. We'll obtain laboratory workup and if unremarkable will help arrange her for outpatient paracentesis. Diagnosis Primary Impression: Ascites Qualified Code: R18.0 - Malignant ascites Patient Instructions: General Instructions Departure Forms: Tests/Procedures Additional Instruction: Labs are normal, and reviewed with Dr. Wiley. Patient is to go to interventional radiology for paracentesis. Patient can return to [place] on Sunday and follow-up with her oncologist as scheduled. Patient can return Condition: Stable Ana Winters MD Jun 30, 2016 14:15
== END 2016-06-30 14:29 | disposition home or self-care (01) ==
LOC: NEPE 12:45
DX: R18.0 Malignant ascites (principal); C50.912 Malignant neoplasm of unspecified site of left female breast; Z43.1 Encounter for attention to gastrostomy; Z46.89 Encounter for fitting and adjustment of other specified devices; Z79.899 Other long term (current) drug therapy
CPT/HCPCS: 80053; 81001; 83690; 85025; 85610; 85730